=== PATIENT | male | born 1980 | race Caucasian/White ===

== ENCOUNTER 2023-07-17 23:13 | Emergency (ER) | payer OTHER, SELFPAY ==
[2023-07-17 23:22] VITALS: BP 153/99; PULSE 89; RESP 14; TEMP 36.7; O2SAT 97
[2023-07-17 23:39] LABS: Basophils Absolute Auto 0.1 K/mm3 (0.0-0.1); Basophils Percent Auto 0.8 % (0.2-1.2); Eosinophils Absolute Auto 0.3 K/mm3 (0-0.3); Eosinophils Percent Auto 3.5 % (0-4.4); Hematocrit 45.5 % (42.0-52.0); Hemoglobin 16.2 g/dL (14.0-18.0); Immature Granulocyte Absolute 0.04 K/mm3 (0.00-0.031); Immature Granulocyte Percent A 0.4 % (0-0.5); Lymphocytes Percent Auto 27.2 % (18.3-44.2); Mean Corpuscular HGB Conc 35.6 g/dl (32-36); Mean Corpuscular Volume 95.6 fl (80-100); Monocytes Absolute Auto 0.8 K/mm3 (0.1-0.6); Monocytes Percent Auto 8.3 % (2.6-8.5); Neutrophils Absolute Auto 5.5 K/mm3 (1.3-6.7); Neutrophils Percent Auto 59.8 % (45.5-73.1); Platelet Count Result 204 k/mm3 (150-375); Red Blood Count 4.76 M/mm3 (4.6-6.20); Red Cell Distribution Width 12.8 % (11.5-14.5); White Blood Count 9.2 K/mm3 (4.5-10.0)
[2023-07-17 23:49] LABS: Prothrombin Time 13.1 Seconds (11.1-14.7)
[2023-07-17 23:50] LABS: Partial Thromboplastin Time 27.4 SECONDS (22.3-36.8)
[2023-07-17 23:55] LABS: Anion Gap 12 mmol/L (8-16); Blood Urea Nitrogen 15 mg/dL (9-20); Carbon Dioxide 25 mmol/L (22-30); Chloride 101 mmol/L (98-107); Estimated CRCL calculation 125 ml/min; Estimated Glomerular Filt Rate > 60; Glucose 105 mg/dL (65-110); Potassium 3.9 mmol/L (3.4-5.0); Sodium 138 mmol/L (137-145)
[2023-07-18 00:20] LABS: D Dimer 1.46 ug/mL (<0.48)
--- NOTE | 2023-07-18 02:07 | ED.GENADULT ---
HPI - General Adult General Chief complaint: Extremity Injury, Lower Stated complaint: R leg pain dvt? Time Seen by Provider: 07/17/23 23:18 History of Present Illness HPI narrative: Patient is a 42-year-old gentleman who presents the emergency department with chief complaint of right leg pain and swelling. The patient reports he has prior history of knee surgery on the right knee patient reports that she has been doing a lot of traveling for work and has been on multiple flights and numerous extended car rides patient reports he has been less active during that time. And reports that he started having pain in his right thigh and right popliteal fossa area patient reports no chest pain no shortness of breath. Patient reports he is no prior history of DVT patient reports that this started on . Related Data Allergies Allergy/AdvReac Type Severity Reaction Status Date / Time latex Allergy Unknown Verified 11/22/10 09:11 adhesive AdvReac Mild RASH Verified 01/15/14 12:08 propoxyphene AdvReac Unknown MOOD SWINGS Verified 01/15/14 12:08 Review of Systems Review of Systems: A 10 system review of systems was completed on the patient and is negative except for what is stated in the HPI. Nursing and ancillary documentation was reviewed. [facility] Family History Family History Other Diabetes mellitus Family history of arthritis Hypertension Social History Social History Alcohol intake: current Exam Narrative: GENERAL: Well-appearing, well-nourished, and in no acute distress. HEAD: Normocephalic, atraumatic. EYES: PERRLA and EOMI. ENT: Nares clear, no rhinorrhea or epistaxis. Mucous membranes moist. NECK: Supple. CHEST: Clear to auscultation. No respiratory distress. HEART: Regular rate and rhythm. No murmur heard. Normal peripheral pulses. ABDOMEN: Soft, nontender, nondistended, normal active bowel sounds. EXTREMITIES: Normal range of motion. Trace edema of the right lower extremity. There is tenderness to palpation in the right thigh on the medial aspect and tenderness to palpation on the medial aspect of the right popliteal fossa. SKIN: Warm, dry, no rash. NEURO: No focal deficits. Alert and oriented x3. PSYCH: Normal mood and affect. Course Vital Signs Vital signs: Vital Signs Temperature 36.7 C 07/17/23 23:22 Pulse Rate 89 07/17/23 23:22 Respiratory Rate 14 07/17/23 23:22 Blood Pressure 153/99 H 07/17/23 23:22 Pulse Oximetry 97 07/17/23 23:22 Oxygen Delivery Room Air 07/17/23 23:22 Temperature 36.7 C 07/17/23 23:22 Pulse Rate 89 07/17/23 23:22 Respiratory Rate 14 07/17/23 23:22 Blood Pressure 153/99 H 07/17/23 23:22 Pulse Oximetry 97 07/17/23 23:22 Oxygen Delivery Room Air 07/17/23 23:22 Medical Decision Making MDM Narrative Medical decision making narrative: Differential diagnosis includes DVT, musculoskeletal strain, muscle cramp Laboratory studies were obtained and the patient showed a normal CBC electrolytes are within normal limits coags are within normal limits D-dimer was 1.46 Patient was given 1 mg/kg of Lovenox in the emergency department and will patient will be scheduled for 7 AM venous duplex of the right lower extremity Vital Signs Vital Signs: Vital Signs Temperature 36.7 C 07/17/23 23:22 Pulse Rate 89 07/17/23 23:22 Respiratory Rate 14 07/17/23 23:22 Blood Pressure 153/99 H 07/17/23 23:22 Pulse Oximetry 97 07/17/23 23:22 Oxygen Delivery Room Air 07/17/23 23:22 Temperature 36.7 C 07/17/23 23:22 Pulse Rate 89 07/17/23 23:22 Respiratory Rate 14 07/17/23 23:22 Blood Pressure 153/99 H 07/17/23 23:22 Pulse Oximetry 97 07/17/23 23:22 Oxygen Delivery Room Air 07/17/23 23:22 Lab Data 07/17/23 23:20 07/17/23 23:20 Labs: Lab Resul
[2023-07-18] MEDS: ENOXAPARIN 120 MG/0.8 ML SYRINGE 110 MG SUB-Q (02:19)
[2023-07-18 02:25] VITALS: BP 138/87; PULSE 90; RESP 19; O2SAT 99
== END 2023-07-18 02:25 | disposition home or self-care (01) ==
LOC: ANHED 07-18 02:16
PROVIDERS: Emergency Provider Emergency Medicine
DX: M79.651 Pain in right thigh (principal)
CPT/HCPCS: 36415; 80048; 85025; 85380; 85610; 85730; 93971; 96372; 99283; J1650

== ENCOUNTER 2023-07-18 07:07 | Outpatient (CLI) | payer OTHER, SELFPAY ==
--- NOTE | ~2023-07-18 | US_ITS ---
EXAMINATION: US venous doppler LE RT DATE: 07/18/2023 08:19 INDICATION: Lower limb pain and swelling TECHNIQUE: Grayscale ultrasound images without and with compression and Doppler ultrasound images of the right lower extremity veins were obtained. COMPARISON: None. FINDINGS: There is noncompressible occlusive thrombus in the right greater saphenous vein from the outflow trac t through the calf. The visualized portions of right common femoral vein, profunda (deep) femoral vei n, femoral vein, popliteal vein, peroneal trunk, posterior tibial veins, peroneal veins and gastrocne mius vein are patent. IMPRESSION: 1. Diffuse occlusive appearing thrombosis of the right greater saphenous vein extending from the calf to the outflow tract. Although not a deep vein, thrombus in the greater saphenous vein outflow tract is generally considered a deep vein equivalent. No other deep venous thrombosis in the right lower l imb. Reviewed, dictated and finalized at location A. IMPRESSION: 1. Diffuse occlusive appearing thrombosis of the right greater saphenous vein e xtending from the calf to the outflow tract. Although not a deep vein, thrombus in the greater saphenous vein outflow tract is generally considered a deep vei n equivalent. No other deep venous thrombosis in the right lower limb.
== END 2023-07-18 07:08 | disposition home or self-care (01) ==
PROVIDERS: PCP Family Medicine; Visit Provider Emergency Medicine
DX: M79.89 Other specified soft tissue disorders (principal); I82.491 Acute embolism and thrombosis of other specified deep vein of right lower extremity
CPT/HCPCS: 93971